=== PATIENT | female | born 1990 | race Two or more races ===

== ENCOUNTER 2019-05-09 01:25 | Inpatient (IN) | payer OTHER ==
[2019-05-09] MEDS ORDERED: Lactated Ringers 1000 ML Bag* 1,000 ML IV ONE (02:22)
--- NOTE | 2019-05-09 02:32 | HP ---
General Information - Reason for Visit IUP at 40-09/05 in labor - General Information Maternal Age: 29 Grav: 1 Para: 0 SAB: 0 IEA: 0 Estimated Due Date: 05/08/19 Determined By: Early Ultrasound Gestational Age in Weeks/Days: 40-09/05 Maternal Blood Type and Rh: B Positive - Results this Serology/RPR Result: Non-Reactive Rubella Result: Immune HBsAg Result: Negative HIV Result: Negative GBS Culture Result: Negative Past Medical History Delivery History: See Records Delivery History Comment: Primip Pertinent Past Medical History: See Records Past Medical History Comment: H/O Kidney Stones Pertinent Past Surgical History: None Pertinent Family History: See Records Family History Comment: MGF: , CVA - Antepartal Records Antepartal Records: Reviewed, Uncomplicated - Varicella non-immune Review of Systems Constitutional: Uncomfortable CV Complaint: No Respiratory: Shortness of Breath: No Gastrointestinal: No Nausea/Vomiting, Normal Bowel Movement Genitourinary: Leaking Fluid, No Dysuria, Spotting Musculoskeletal: Contractions Neurological: No Headache, No Visual Changes Movement: Normal Exam Allergies/Adverse Reactions: Allergies No Known Allergies Allergy (Verified 03/18/19 10:51) Vital Signs 05/09/19 01:50 Temperature 98.1 F Pulse Rate 67 Blood Pressure 139/73 (mmHg) O2 Sat by Pulse 98 Oximetry - Measurements Height: 5 ft 3 in Weight: 189 lb Weight in lbs: 189.213099 Body Mass Index (BMI): 33.5 Pre- Weight: 141 lb Weight Gained This : 48 lbs and 0 ozs - Exam Breast: Breast Exam Deferred CVA: No CVA Tenderness Extremities: No Edema Heart: Normal Rhythm/Heart Sounds HEENT: No Significant Findings Lungs: Clear Bilaterally Rectal: Rectal Exam Deferred Reflexes: DTR 2+ Thyroid: No Thyromegaly - Abdominal Exam Abdomen Exam: Non-Tender - Ultrasound/Biophysical Profile Ultrasound Status: Not Done Targeted Exam Findings Estimated Weight: EFW 8lbs by Viktoriya Cervical Exam: 8cm Effacement: 100% Station: 0 Presenting Part: Vertex Membrane Status: SROM Amniotic Fluid Evaluation: Gross Rupture Sterile Speculum Exam: Not done Bleeding/Discharge: Bloody Show EFM Findings - External Monitor Findings Baseline Heart Rate: 125 External Monitor Findings: Variability Moderate, Variable or Late Deceleration Pattern Present External Monitor Findings Comment: Category II FHT in active labor Contractions: Regular, Strong, >90 Seconds Contraction Frequency: q1-3 Assessment/Plan - Assessment IUP at 40-1/7 in active labor Category II FHT, bears close monitoring - Plan Plan: Admit - Anticipate Vaginal Delivery Plan Comment: IV placed and fluid bolus running. O2 by mask. FSE applied. Close monitoring of maternal/ status. Dr. Rodgers in house and aware of pt presence and condition. - Date/Time of Admission Date of Admission: 05/09/19 Time of Admission: 01:30
[2019-05-09 02:47] LABS: ABS Lymphocytes 1.5 10^3/ul (1.0-4.8); ABS Monocytes 0.5 10^3/ul (0-0.8); ABS Neutrophils 4.8 10^3/ul (1.5-7.7); Eosinophil % 0.3 %; Hematocrit 40 % (35-47); Hemoglobin 13.8 g/dL (12.0-16.0); Lymphocyte % 21.6 %; Mean Corpuscular HGB Conc 35 g/dL (31-36); Mean Corpuscular Hemoglobin 33 pg (27-31); Mean Corpuscular Volume 95 fL (80-97); Nucleated Red Blood Cells % 0.1; Platelet Count 158 10^3/uL (150-450); Red Blood Count 4.21 10^6 /uL (3.70-4.87); Red Cell Distribution Width 14 % (10-15); White Blood Count 6.9 10^3/uL (3.5-10.8)
[2019-05-09] MEDS ORDERED: Lactated Ringers 1000 ML Bag* 1,000 ML IV SCH ×2 (03:00→09:00)
[2019-05-09 03:34] LABS: Urine Benzodiazepine Screen None Detected (None Detect); Urine Opiates Screen None Detected (None Detect)
[2019-05-09] MEDS ORDERED: ceFOXitin 2 GM IVPREMIX* 2 GM/50 ML BAG IVPB ONE (06:51)
--- NOTE | 2019-05-09 07:44 | PN ---
Progress Note - Progress Note Date of Service: 05/09/19 Note: This provider called to the patient bedside to assess perineal injury and required repair after . Infant and placenta delivered and perineum infiltrated with Epinephrine for local anesthetic effect by emergency medicine specialist. A rectal exam was performed and rectal mucosa found to be wholly intact. Exam of the perineum revealed a 3a partial 3rd degree laceration with the external anal sphincter torn less than 50%. The torn portion of anal sphincter was re-approximated using interrupted figure of eight throws with a 2-0 Vicryl suture with good effect. The remainder of the repair was completed per routine technique with 2-0 Vicryl suture. At the end of the repair the injury was hemostatic. A rectal exam was again performed and there was neither evidence of 4th degree laceration or palpable suture in the rectum. Total EBL for delivery and repair was 500mL. Cefoxitin 2gm x 1 ordered for infection ppx. DO LORI Burnham
[2019-05-09] MEDS ORDERED: Glycerin ADULT SUPP PR PRN (08:51)
[2019-05-09] MEDS ORDERED: Acetaminophen TAB* 325 MG PO PRN (08:51)
--- NOTE | 2019-05-09 09:01 | PROCNOTE ---
[facility] OB: Delivery Note - Delivery A Date of : 05/09/19 Time of : 05:32 [place] Sex: Female Weight at : 9 lb 2 oz Score 1 Minute: 6 Score 5 Minutes: 9 Gestational Age in Weeks and Days at Delivery: 40 Weeks and 1 Days Delivery Method: Spontaneous Vaginal Labor: Spontaneous Did Patient attempt ?: N/A, No Previous Amniotic Fluid: Clear Estimated Blood Loss: 500 Anesthesia/Analgesia: None Delivered By: Sixto Amaral - Nursery Level of Nursery: Regular/Bedside - Perineum Perineal Injury: 3rd Degree Extension - repaired by Dr. Rodgers. See MD note Perineal Repair: Dr. Rodgers - Events Delivery Events of Note: Pitocin Only After Delivery, Internal Scalp EKG - Additional Delivery Notes Additional Delivery Notes: Pt admitted in active labor with category II FHT. IV fluids, O2 by mask improved tracing. FSE applied to better trace FHT. Dr. Rodgers in house and aware of pt presence and condition throughout labor. Length of active phase 5 hours, 10 min. Pushed x 2 hours, 2 min. liveborn female. Slow, controlled delivery of head. OA to LOT. Shoulders followed easily. Very short cord noted. Unable to advance from perineum. Infant initially stunned, placed in RN's hands. Cord clamped x 2 and cut. moved to maternal abdomen for tactile stimulation and bulb suction. HR >110bpm. Apgars 6/9. Spontaneous delivery intact placenta. Membranes complete. Fundus firm to massage. 10 units IM pitocin administered and fundus remained firm. Careful inspection of the perineum yielded at partial 3rd degree laceration. Dr. Rodgers paged to bedside for consult and repair. See MD notes. EBL 500mL. At time of note mother and infant in stable condition. Planning to breast feed.
[2019-05-09] MEDS: Dibucaine 1% 28.35 GM TUBE PR PRN ×2 (10:41→16:16)
[2019-05-09] MEDS: Witch Hazel PAD* JAR TOPICAL PRN (10:41)
[2019-05-09] MEDS ORDERED: Ammonia Inhalant* 1 EA AMP ONE (10:50)
[2019-05-09] MEDS: Ibuprofen TAB* 600 MG PO SCH ×3 (11:03→21:34)
[2019-05-09] MEDS ORDERED: Simethicone TAB* 80 MG TAB.CHEW PO SCH (12:30)
[2019-05-09] MEDS: Docusate CAP* 100 MG PO SCH ×3 (16:16→21:23)
[2019-05-10] MEDS: Witch Hazel PAD* JAR TOPICAL PRN (04:34)
[2019-05-10] MEDS: Dibucaine 1% 28.35 GM TUBE PR PRN (04:34)
[2019-05-10] MEDS: Ibuprofen TAB* 600 MG PO SCH ×4 (05:27→21:30)
[2019-05-10 08:28] LABS: ABS Lymphocytes 1.3 10^3/ul (1.0-4.8); ABS Monocytes 0.5 10^3/ul (0-0.8); ABS Neutrophils 5.9 10^3/ul (1.5-7.7); Eosinophil % 0.1 %; Hematocrit 26 % (35-47); Hemoglobin 8.9 g/dL (12.0-16.0); Lymphocyte % 16.4 %; Mean Corpuscular HGB Conc 35 g/dL (31-36); Mean Corpuscular Hemoglobin 33 pg (27-31); Mean Corpuscular Volume 96 fL (80-97); Mean Platelet Volume 7.7 fL (7.4-10.4); Platelet Count 122 10^3/uL (150-450); Red Blood Count 2.69 10^6 /uL (3.70-4.87); Red Cell Distribution Width 14 % (10-15); White Blood Count 7.7 10^3/uL (3.5-10.8)
[2019-05-10] MEDS: Docusate CAP* 100 MG PO SCH ×3 (08:53→20:49)
[2019-05-10] MEDS: Ferrous Gluconate TAB* 324 MG TAB PO SCH ×2 (11:39→20:49)
[2019-05-11] MEDS: Ibuprofen TAB* 600 MG PO SCH ×3 (03:09→14:42)
[2019-05-11 06:20] LABS: Hematocrit 26 % (35-47); Mean Corpuscular HGB Conc 35 g/dL (31-36); Mean Corpuscular Hemoglobin 33 pg (27-31); Mean Corpuscular Volume 95 fL (80-97); Mean Platelet Volume 7.3 fL (7.4-10.4); Platelet Count 131 10^3/uL (150-450); Red Blood Count 2.68 10^6 /uL (3.70-4.87); Red Cell Distribution Width 14 % (10-15); White Blood Count 6.5 10^3/uL (3.5-10.8)
[2019-05-11 08:40] VITALS: BP 110/65
[2019-05-11] MEDS: Docusate CAP* 100 MG PO SCH ×2 (08:47→14:41)
[2019-05-11] MEDS: Ferrous Gluconate TAB* 324 MG TAB PO SCH (08:48)
[2019-05-11] MEDS: Witch Hazel PAD* JAR TOPICAL PRN (08:48)
[2019-05-11] MEDS: Dibucaine 1% 28.35 GM TUBE PR PRN (08:48)
[2019-05-11] MEDS ORDERED: Varicella Virus Vaccine Live* 0.5 ML VIAL SUBCUT ONE (10:00)
== END 2019-05-11 16:45 | disposition home or self-care (01) | DRG 768 ==
LOC: MCHOBOUT 01:25 → MCHOB 02:06
PROVIDERS: ADMIT Midwife; ATTEND Midwife
PROC: 10E0XZZ Delivery of Products of Conception, External Approach (ICD-10-PCS; principal; 2019-05-09)
PROC: 0DQR0ZZ Repair Anal Sphincter, Open Approach (ICD-10-PCS; 2019-05-09)
PROC: 4A1H7CZ Monitoring of Products of Conception, Cardiac Rate, Via Natural or Artificial Opening (ICD-10-PCS; 2019-05-09)
PROC: 10H073Z Insertion of Monitoring Electrode into Products of Conception, Via Natural or Artificial Opening (ICD-10-PCS; 2019-05-09)
DX: O76 Abnormality in fetal heart rate and rhythm complicating labor and delivery (principal); Z37.0 Single live birth; O70.21 Third degree perineal laceration during delivery, IIIa; O48.0 Post-term pregnancy; O69.3XX0 Labor and delivery complicated by short cord, not applicable or unspecified; O90.81 Anemia of the puerperium; Z3A.40 40 weeks gestation of pregnancy; Z87.442 Personal history of urinary calculi
CPT/HCPCS: 36415; 80307; 85025; 85027; 86850; 86900; 86901; A9270-GY; J0694